=== PATIENT | male | born 1955 | race Caucasian/White ===

== ENCOUNTER 2022-11-19 06:26 | Day surgery (SDC) | payer MEDICARE, OTHER ==
[2022-11-15 15:39] VITALS: BMI 24.5
[2022-11-19] MEDS ORDERED: PROPOFOL 40 ML ONE (07:27)
[2022-11-19] MEDS ORDERED: Lidocaine 1% PF 5 ML VIAL ONE (09:53)
[2022-11-19] MEDS ORDERED: PROPOFOL 20 ML ONE (09:54)
[2022-11-19] MEDS ORDERED: ePHEDrine Sulfate 50 MG/10 ML VIAL ONE (09:59)
== END 2022-11-19 10:38 | disposition home or self-care (01) ==
LOC: CSHSDC 06:26
PROVIDERS: ATTEND Internal Medicine Gastroenterology
PROC: 0DJD8ZZ Inspection of Lower Intestinal Tract, Via Natural or Artificial Opening Endoscopic (ICD-10-PCS; principal; 2022-11-19)
PROC: 0DB38ZX Excision of Lower Esophagus, Via Natural or Artificial Opening Endoscopic, Diagnostic (ICD-10-PCS; 2022-11-19)
PROC: 0D757DZ Dilation of Esophagus with Intraluminal Device, Via Natural or Artificial Opening (ICD-10-PCS; 2022-11-19)
DX: Z12.11 Encounter for screening for malignant neoplasm of colon (principal); K57.30 Diverticulosis of large intestine without perforation or abscess without bleeding; K64.9 Unspecified hemorrhoids; K22.2 Esophageal obstruction; K20.0 Eosinophilic esophagitis; Z86.010 Personal history of colon polyps; Z87.19 Personal history of other diseases of the digestive system; Z88.0 Allergy status to penicillin; Z98.890 Other specified postprocedural states
CPT/HCPCS: 43239; 43450; G0105; 88305; 88312; J2704

== ENCOUNTER 2025-10-06 10:46 | Outpatient (CLI) | payer MEDICARE, OTHER ==
[2025-10-06 12:00] LABS: #Basophils Less than 0.03 10x3/uL (0.0-0.2); #Eosinophils 0.04 10x3/uL (0.0-0.5); #Monocytes 0.52 10x3/uL (0.0-1.1); #Neutrophils 3.31 10x3/uL (1.5-8.4); %Basophils 0.4 % (0.0-2.0); %Eosinophils 0.8 % (0.0-6.0); %Lymphocytes 19.9 % (18.0-47.0); %Monocytes 10.6 % (0.0-10.0); %Neutrophils 67.3 % (40.0-75.0); Hematocrit 42.8 % (38.8-50.0); Hemoglobin 14.5 g/dL (13.5-17.5); Mean Corpuscular Hemoglobin 31.3 pg (27.0-33.0); Mean Corpuscular Volume 92.2 fL (81.2-95.1); Platelet Count 206 10x3/uL (150-450); Red Blood Cell (RBC) Count 4.64 10x6/uL (4.32-5.72); White Blood Cell (WBC) Count 4.92 10x3/uL (3.5-10.5)
[2025-10-06 12:40] LABS: Anion Gap 12 mmol/L (10-20); BUN (Urea Nitrogen) 14 mg/dL (8.4-25.7); Calc. Creatinine Clearance 0 mL/min (70-130); Calcium 9.5 mg/dL (7.8-10.44); Carbon Dioxide 28 mmol/L (23-31); Chloride 102 mmol/L (98-107); Glucose 108 mg/dL (83-110); Potassium 4.6 mmol/L (3.5-5.1); Sodium 137 mmol/L (136-145)
== END 2025-10-06 10:47 | disposition home or self-care (01) ==
LOC: CSHLAB 10:46
PROVIDERS: ATTEND Surgery
DX: Z01.818 Encounter for other preprocedural examination (principal)
CPT/HCPCS: 80048; 85025; 93005; 93010

== ENCOUNTER 2025-10-13 07:29 | Day surgery (SDC) | payer MEDICARE, OTHER ==
[2025-10-06 15:13] VITALS: BMI 24.1
[2025-10-13] MEDS ORDERED: CEFAZOLIN 2 GM VIAL ONE (08:51)
[2025-10-13] MEDS ORDERED: Bupivacaine/Epinephrine 0.25% 30 ML VIAL ONE (08:51)
[2025-10-13] MEDS ORDERED: Rocuronium Bromide 10 MG/ML (10ML VIAL) ONE (09:46)
[2025-10-13] MEDS ORDERED: PROPOFOL 20 ML ONE (09:46)
[2025-10-13] MEDS ORDERED: Lidocaine 1% PF 5 ML VIAL ONE (09:46)
[2025-10-13] MEDS ORDERED: Ondansetron PF 4 MG/2 ML Vial ONE (10:04)
[2025-10-13] MEDS ORDERED: SUGAMMADEX SODIUM 200 MG/2 ML VIAL ONE (10:50)
[2025-10-13] MEDS ORDERED: HYDROcodone/Acetaminophen 5/325 mg Tablet ONE (12:19)
== END 2025-10-13 12:50 | disposition home or self-care (01) ==
LOC: CSHSDC 07:29
PROVIDERS: ATTEND Surgery
PROC: 0YUA4JZ Supplement Bilateral Inguinal Region with Synthetic Substitute, Percutaneous Endoscopic Approach (ICD-10-PCS; principal; 2025-10-13)
DX: K40.20 Bilateral inguinal hernia, without obstruction or gangrene, not specified as recurrent (principal)
CPT/HCPCS: 49650; C1781 ×2; J1100; J2704; S2900; J2405; J3010